=== PATIENT | male | born 1945 | race Caucasian/White ===

== ENCOUNTER 2024-05-05 19:53 | Emergency (ER) | payer OTHER, SELFPAY ==
[2024-05-05] VITALS (44 sets, daily range): BP systolic 108–155; BP diastolic 64–81; PULSE 55–105; RESP 16–30; TEMP 36–36.8; O2SAT 85–99
--- NOTE | 2024-05-05 19:45 | RT.EKG_ITS ---
APPROVED REPORT Exam: Resting ECG Reason for Exam: sob Patient Location: E HR:86 bpm ECG Measurements Heart Rate 86 AXIS RI 186 P 31 QRSd 80 QRS -23 QT 347 T 24 QTc 416 Conclusion Sinus rhythm 86 no stemi
--- NOTE | 2024-05-05 19:45 | DI.RAD_ITS ---
Exam(s) XR PORTABLE CHEST AP EXAM: XR PORTABLE CHEST AP CLINICAL HISTORY: chest pain TECHNIQUE: 2D digital imaging was performed. COMPARISON: No exams were available for comparison FINDINGS: LUNGS: Exam limited by poor pulmonary inflation. Diffuse fibrotic changes. No focal infiltrate. No pleural abnormality seen. HEART: Normal size. AORTA: Normal diameter. BONES: Advanced degenerative changes in the shoulders and spine. Soft tissues: Unremarkable. IMPRESSION: Pulmonary fibrosis. No acute findings. DATA REPOSITORY: RADIATION DOSE DELIVERED:
[2024-05-05] MEDS: nitroGLYcerin 0.4 MG TAB SL ×3 (20:08→20:30)
[2024-05-05 20:13] LABS: Abs Immature Grans 0.05 10^3/uL (0.0-0.06); Absolute Basophil Count 0.05 10^3/uL (0.0-0.2); Absolute Eosinophil Count 0.18 10^3/uL (0.0-0.7); Absolute Lymphocyte Count 1.47 10^3/uL (1.2-3.4); Absolute Monocyte Count 1.22 10^3/uL (0.1-0.8); Basophils % 0.4 %; Eosinophils % 1.5 %; HCT 38.8 % (40.0-50.0); Immature Grans % 0.4 %; Lymphocytes % 12.6 %; MCH 28.6 pg (27.0-33.0); MCHC 33.5 % (32.0-36.0); MCV 85 fL (80-95); MPV 10.5 fL (8.0-11.0); Monocytes % 10.4 %; Neutrophils % 74.7 %; Platelet Count 214 10^3/uL (130-400); RBC 4.55 10^6/uL (4.36-5.78); RDW 15.4 % (11.8-14.1); RDW-SD 47.8 fL
[2024-05-05 20:16] LABS: Absolute Neutrophil Count 8.74 10^3/uL (1.2-6.7)
[2024-05-05 20:29] LABS: PTT Activated 23.4 sec (23.6-32.8); Prothrombin Time 10.4 sec (9.1-11.1)
[2024-05-05] MEDS: Acetaminophen 500 MG TAB 1000 MG PO (20:30)
--- NOTE | 2024-05-05 20:36 | DI.VRAD_ITS ---
PROCEDURE INFORMATION: Exam: XR Chest Exam date and time: 05/05/2024 8:11 PM Age: 79 years old Clinical indication: Shortness of breath; Other: Chest pain TECHNIQUE: Imaging protocol: Radiologic exam of the chest. Views: 1 view. COMPARISON: No relevant prior studies available. FINDINGS: Airway: The trachea is tortuous. Lungs: There is diffuse reticular interstitial prominence. Underlying chronic lung disease is suspected. No focal pulmonary consolidation is seen. Pleural spaces: No pleural effusion or pneumothorax is seen. Heart/Mediastinum: The heart appears normal in size. Bones/joints: There is severe degenerative change at the shoulder joints and acromioclavicular joints bilaterally. There are osteophytes along the thoracic spinal margin. IMPRESSION: Diffuse reticular interstitial prominence. Underlying chronic lung disease is suspected. Comparison with prior imaging is recommended. No region of focal pulmonary consolidation is seen. Dictated and Authenticated by: Adelfo Hines MD. Ordering:LINDA Gunter MD
[2024-05-05 20:42] LABS: ALT 74 U/L (16-63); AST 70 U/L (15-37); Albumin 2.5 g/dL (3.4-5.0); Alkaline Phosphatase 243 U/L (46-116); BUN 12 mg/dL (7-18); Bilirubin, Total 0.66 mg/dL (0.2-1.0); CREATININE 0.7 mg/dL (0.70-1.30); Calcium 8.6 mg/dL (8.5-10.1); Chloride 103 mmol/L (98-107); Glucose 106 mg/dL (74-106); Magnesium 1.9 mg/dL (1.8-2.4); NT-proBNP 126 pg/mL (<300); Potassium 4.2 mmol/L (3.5-5.1); Sodium 138 mmol/L (136-145); Total Protein 7.5 g/dL (6.4-8.2); Troponin I < 50 ng/L (< or =60)
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
--- NOTE | 2024-05-05 22:15 | RT.EKG_ITS ---
APPROVED REPORT Exam: Resting ECG Reason for Exam: chest pain Patient Location: E HR:60 bpm ECG Measurements Heart Rate 60 AXIS AL 192 P 26 QRSd 92 QRS -20 QT 442 T 3 QTc 442 Conclusion Sinus rhythm 60 normal axis no dynamic change
[2024-05-05 23:03] LABS: Troponin I < 50 ng/L (< or =60)
== END 2024-05-05 23:30 ==
PROVIDERS: Emergency Provider Emergency Medicine
DX: R07.9 Chest pain, unspecified (principal); R06.02 Shortness of breath; R42 Dizziness and giddiness; T67.9XXA Effect of heat and light, unspecified, initial encounter
CPT/HCPCS: 36415; 80053; 93005; 99285; 71045; 83735; 83880; 84484; 85025; 85610; 85730; 93010; 99283